=== PATIENT | male | born 1970 | race Two or more races ===

== ENCOUNTER 2018-10-01 13:30 | Inpatient (IN) | payer OTHER, MEDICARE ==
[2018-10-01 14:49] LABS: Mean Corpuscular HGB CONC 34.5 g/dL (32.0-36.0); Mean Corpuscular Hemoglobin 29.7 pg (27.0-31.0); Mean Platelet Volume 6.3 fL (7.4-10.4); Platelet Count 287 thou/uL (130-400); RBC Distribution Width 11.9 % (11.5-14.5); Red Blood Cell (RBC) Count 5.06 mill/uL (4.70-6.10); White Blood Cell (WBC) Count 8.1 thou/uL (4.8-10.8)
[2018-10-01 15:09] LABS: Anion Gap 15 mmol/L (10-20); BUN (Urea Nitrogen) 16 mg/dL (8.9-20.6); Calc. Creatinine Clearance 0 mL/min (70-130); Carbon Dioxide 22 mmol/L (22-29); Chloride 101 mmol/L (98-107); Estimated GFR-MDRD 84; Glucose 230 mg/dL (70-105); Potassium 3.9 mmol/L (3.5-5.1); Sodium 134 mmol/L (136-145)
[2018-10-02] MEDS ORDERED: Nitroglycerin 50 MG/250 ML BOT 250 ML ONE (06:21)
[2018-10-02] MEDS ORDERED: Fentanyl 250 MCG/5 ML VIAL ONE (06:22)
[2018-10-02] MEDS ORDERED: Norepinephrine 4 MG/4 ML VIAL ONE (06:22)
[2018-10-02] MEDS ORDERED: Midazolam HCl 2 mg/2 ml Vial ONE (06:23)
[2018-10-02] MEDS ORDERED: Albumin 5% 500 ML ONE (06:30)
[2018-10-02] MEDS ORDERED: Heparin 10,000 UNITS/1 ML VIAL 30,000 UNITS in Sodium Chloride 0.9% 1,000 ML FS SCH (06:45)
[2018-10-02] MEDS ORDERED: ceFAZolin Sodium (SDC) 2 GM/100 ML BAG ONE (06:54)
[2018-10-02] MEDS ORDERED: Midazolam HCl 5 mg/5 ml Vial ONE (07:24)
[2018-10-02] MEDS ORDERED: HYDROmorphone 2 MG/ML VIAL ONE (08:24)
[2018-10-02] MEDS ORDERED: Insulin Regular 300 UNITS/3 ML VIAL ONE (09:22)
[2018-10-02] MEDS ORDERED: Rocuronium Bromide 10 MG/ML (10ML VIAL) ONE (11:10)
[2018-10-02] MEDS ORDERED: Sodium Bicarb 50 MEQ/50 ML VIAL ONE (11:10)
[2018-10-02] MEDS ORDERED: Magnesium 5 GM/10 ML VIAL ONE (11:10)
[2018-10-02] MEDS ORDERED: Calcium Chloride 1 GM/10 ML Abboject SYRINGE ONE (11:10)
[2018-10-02] MEDS ORDERED: Heparin 30,000 units/30 ml VIAL ONE (11:10)
[2018-10-02] MEDS ORDERED: Aminocaproic Acid 5 GM/20 ML VIAL ONE (11:10)
[2018-10-02] MEDS ORDERED: Vecuronium 10 MG VIAL ONE ×2 (11:10→11:26)
[2018-10-02] MEDS ORDERED: Mannitol 12.5 GM/50 ML ONE (11:10)
[2018-10-02] MEDS ORDERED: Potassium Chloride 60 MEQ/30 ML VIAL ONE (11:10)
[2018-10-02] MEDS ORDERED: Cardioplegic Soln 1,000 ML BAG ONE (11:10)
[2018-10-02] MEDS ORDERED: Heparin 5,000 UNITS/ML VIAL ONE (11:10)
[2018-10-02] MEDS ORDERED: PROPOFOL 200 MG/20 ML VIAL ONE (11:10)
[2018-10-02] MEDS ORDERED: Ondansetron PF 4 MG/2 ML Vial ONE (11:10)
[2018-10-02] MEDS ORDERED: Protamine Sulfate 250 MG/25 ML VIAL ONE (11:10)
[2018-10-02] MEDS ORDERED: Lidocaine 2% PF 100 mg/5 ml Syringe ONE (11:10)
[2018-10-02] MEDS ORDERED: Papaverine 60 MG/2 ML VIAL ONE (11:10)
[2018-10-02] MEDS ORDERED: Succinylcholine Chloride 20 MG/ML 10 ml SYRINGE FS ONE (11:10)
[2018-10-02] MEDS ORDERED: Thrombin 5000 UNITS/5 ML VIAL ONE (11:10)
[2018-10-02] MEDS ORDERED: PROPOFOL 20 ML ONE (11:26)
[2018-10-02] MEDS ORDERED: niCARdipine 25 MG in Sodium Chloride 0.9% 250 ML 250 ML IVPB PRN (11:39)
[2018-10-02] MEDS ORDERED: Promethazine HCl 25 MG/ML VIAL IM PRN (11:39)
[2018-10-02] MEDS ORDERED: Nitroglycerin 50 MG/250 ML BOT 250 ML IVPB PRN (11:39)
[2018-10-02] MEDS ORDERED: Bisacodyl 10 MG SUPP PR PRN (11:39)
[2018-10-02] MEDS ORDERED: Bisacodyl 5 MG TAB PO PRN (11:39)
[2018-10-02] MEDS ORDERED: Norepinephrine 8 MG/0.9% NS 250 ML IVPB PRN (11:39)
[2018-10-02] MEDS ORDERED: Post-Op Insulin Drip Protocol IVPB ONE (11:39)
[2018-10-02] MEDS ORDERED: Hetastarch 6% 500 ML 500 ML IVPB PRN (11:39)
[2018-10-02] MEDS ORDERED: DOPamine 400 MG/D5W 250 ML 250 ML IVPB PRN (11:39)
[2018-10-02] MEDS ORDERED: hydrALAZINE 20 MG/ML VIAL SLOW IVP PRN (11:39)
[2018-10-02] MEDS ORDERED: Mag-Al 1200 mg/1200 mg/30 ML UDCUP PO PRN (11:39)
[2018-10-02] MEDS ORDERED: HYDROcodone/Acetaminophen 5/325 mg Tablet PO PRN (11:39)
[2018-10-02] MEDS ORDERED: Guaifenesin DM 100-10/5 ML UDCUP PO PRN (11:39)
[2018-10-02] MEDS ORDERED: CEFAZOLIN 2 GM in Premix Bag 1 BAG IVPB SCH (11:45)
[2018-10-02] MEDS: Lactated Ringer's 1,000 ML IV SCH ×2 (12:05→19:44)
[2018-10-02 12:18] LABS: Actual Bicarbonate (HCO3a) 23.5 mEq/L (22-28); Base Excess (BEa) -2.3 mEq/L (-2.0 to +3.0); Carboxyhemoglobin (COHb) 0.7 gm% (0.0-3.0); Hemoglobin (Hb) 12.9 g/dL (14.0-18.0); Potassium - ABG Lab 3.66 mmol/L (3.70-5.30); Puncture Site A-LINE; pH, Arterial 7.35 (7.35-7.45)
[2018-10-02 12:24] LABS: #Basophils 0.1 thou/uL (0.0-0.2); #Eosinphils 0.2 thou/uL (0.0-0.7); #Lymphocytes 1.7 thou/uL (1.20-3.40); #Monocytes 1.1 thou/uL (0.11-0.59); #Neutrophils 12.7 thou/uL (1.40-6.50); %Basophils 0.3 % (0.0-1.0); %Eosinophils 1.4 % (0.0-10.0); %Lymphocytes 10.6 % (21.0-51.0); %Monocytes 6.9 % (0.0-10.0); %Neutrophils 80.7 % (42.0-75.0); Hemoglobin 12.6 g/dL (14.0-18.0); Mean Corpuscular HGB CONC 35.5 g/dL (32.0-36.0); Mean Corpuscular Hemoglobin 30.5 pg (27.0-31.0); Mean Corpuscular Volume 85.8 fL (78.0-98.0); Mean Platelet Volume 6.3 fL (7.4-10.4); Platelet Count 221 thou/uL (130-400); RBC Distribution Width 11.9 % (11.5-14.5); Red Blood Cell (RBC) Count 4.14 mill/uL (4.70-6.10); White Blood Cell (WBC) Count 15.7 thou/uL (4.8-10.8)
[2018-10-02 12:28] LABS: INR-International Normal Ratio 1.2; PTT 29.5 SEC (22.9-36.1); Prothrombin Time 15.2 SEC (12.0-14.7)
[2018-10-02] MEDS: Fentanyl 100 MCG/2 ML VIAL SLOW IVP PRN ×3 (12:30→21:06)
[2018-10-02] MEDS ORDERED: Dextrose 5% in Water 1,000 ML IV PRN (12:33)
[2018-10-02] MEDS ORDERED: HUMULIN R 100 UNITS in Sodium Chloride 0.9% 100 ML IVPB SCH (12:33)
[2018-10-02] MEDS ORDERED: Dextrose 50% Abboject 50 ML SYRINGE SLOW IVP PRN (12:33)
--- NOTE | 2018-10-02 12:36 | RAD ---
Portable frontal chest radiograph: 10/02/2018 COMPARISON: None HISTORY: Evaluate chest following open heart surgery FINDINGS: Endotracheal tube terminates at the level of the clavicular heads. Midline sternotomy wires are present. Right-sided vascular catheter present, distal tip overlying the region of the right atrium. Postsurgical drainage catheters overlie the mediastinum and the cardiac silhouette to the lef t of midline. No focal consolidation or alveolar edema. Mild hazy increased density in the medial left base suggesting volume loss IMPRESSION: Postoperative changes as detailed above.
[2018-10-02] MEDS: Ketorolac Tromethamine 30 MG/ML VIAL IVP SCH ×3 (12:38→23:05)
[2018-10-02] MEDS: Insulin Regular 300 UNITS/3 ML VIAL SC PRN (12:39)
[2018-10-02 12:40] LABS: Anion Gap 11 mmol/L (10-20); BUN (Urea Nitrogen) 14 mg/dL (8.9-20.6); Calc. Creatinine Clearance 168 mL/min (70-130); Calcium 9.2 mg/dL (7.8-10.44); Carbon Dioxide 24 mmol/L (22-29); Chloride 109 mmol/L (98-107); Estimated GFR-MDRD 85; Glucose 145 mg/dL (70-105); Potassium 3.8 mmol/L (3.5-5.1); Sodium 140 mmol/L (136-145)
--- NOTE | 2018-10-02 12:46 | OP ---
DATE OF PROCEDURE: 10/02/2018 PREOPERATIVE DIAGNOSIS: Coronary artery disease. PROCEDURES PERFORMED: Coronary artery bypass grafting x4, left internal mammary artery as a sequential graft to 1.5 mm diseased diagonal and a left anterior descending that did not admit a 1 mm probe distally, saphenous vein somewhat large to a 3 mm distal right coronary artery with plaque and a 1.5 mm posterolateral branch that was diffusely diseased. ANKLE PATCH MOLDER: Jonatan Fernandez MD TRANSFUSION: None. DESCRIPTION OF PROCEDURE: After adequate anesthesia had been obtained, the patient was prepped and draped. Dr. Fernandez did an endovascular vein harvest of the left greater saphenous vein converted to open to perform a median sternotomy. Left internal mammary artery was harvested. The patient then heparinized. The mammary divided distally and passed posterior to the thymus gland. Pericardium was opened. Traction sutures placed and the aorta and right atrium cannulated. Cardiopulmonary bypass was begun and vessels were inspected for grafting. The LAD was diffusely calcified at the apex and the patient did have a diagonal that could be done. The cross-clamp was applied after a liter of cold blood cardioplegia. The distal right coronary artery was opened and saphenous vein anastomosis completed. The PDA was examined; however, was diffusely calcified throughout its entire length. The posterolateral was opened and saphenous vein anastomosed here. Following this, the diagonal was opened and the mammary olrs-mr-glpn anastomosis completed. Finally , the LAD was opened admitting a 1 mm probe proximally. Distal anastomosis was then completed between the mammary and the LAD. Cross-clamp removed. Partial occluding clamp placed in the main right coronary artery. Vein graft was anastomosed to the aortic root and the PL graft vein graft was placed on the RCA veinabout 2 cm from the aorta. The patient was weaned from cardiopulmonary bypass. Cannula was removed. Protamine given systemically. Aortic cannulation site secured with probe. A mediastinal left pleural drain was placed, following which the sternum was reapproximated with combination of a zip ties and #7 wire. Vancomycin paste was used on the sternal edges, platelet rich blood and platelet poor plasma were placed. There was no grafted vessel that was felt to be suitable for reoperation. Job ID: [id number] [facility]
[2018-10-02] MEDS: CEFAZOLIN 2 GM, IV Admixture Fee-Chemo 1 UNITS in Sodium Chloride 0.9% 100 ML IVPB SCH ×2 (13:01→21:11)
[2018-10-02] MEDS: Potassium Chloride 20 MEQ/100 ML PREMIX BAG IVPB PRN ×2 (13:02→23:13)
[2018-10-02] MEDS: Morphine 2 MG/ML SYRINGE SLOW IVP PRN ×2 (13:30→13:50)
[2018-10-02 16:25] LABS: ALV-art Gradient 135.925 (0-20); Actual Bicarbonate (HCO3a) 21.2 mEq/L (22-28); Base Excess (BEa) -4.1 mEq/L (-2.0 to +3.0); CO2 Tension 39.5 mmHg (35.0-45.0); Calcium, Ionized 1.12 mmol/L (1.12-1.30); Hemoglobin (Hb) 13.1 g/dL (14.0-18.0); O2 Tension (PaO2) 99.9 mmHg (80.0-100.0); Potassium - ABG Lab 4.01 mmol/L (3.70-5.30); Puncture Site A-LINE; pH, Arterial 7.35 (7.35-7.45)
[2018-10-02] MEDS: Ondansetron PF 4 MG/2 ML Vial IVP PRN (17:04)
--- NOTE | 2018-10-02 17:11 | CON ---
DATE OF CONSULTATION: 10/02/2018 REASON FOR CONSULTATION: Post CABG. PRIMARY MANAGER STEEL: Emmanuel Yost MD HISTORY OF PRESENT ILLNESS: Mr. Calderon is a pleasant 48-year-old gentleman, who comes to the hospital for a planned CABG. He was seen in the office back in July for establishment of care. He was feeling poorly fatigued all the time. We did an echocardiogram and a stress test and it showed that his EF was reduced at 40% to 45% with an anterior scar. He has a history of a heart attack. Several years ago, he had a stent placed. He does not know which vessel and he had some residual disease, but they told him that he could not get intervened because of the area where the blockage was. He underwent heart catheterization earlier this month and was found to have severe multivessel disease, so Dr. Bell evaluated him as an outpatient and did a CABG earlier today. On my evaluation, he is extubated now. He is still trying to get weaned off pressors, but his only complaint is chest wall soreness from the surgery. PAST MEDICAL HISTORY: 1. Coronary artery disease. 2. History of [place] in May of 2016. 3. Osteoarthritis. 4. Sleep apnea, not using his CPAP. 5. Type 2 diabetes. 6. Depression. 7. Anxiety. PAST SURGICAL HISTORY: 1. Shoulder surgery in 2013. 2. Carpal tunnel surgery. 3. Bone spurs in spine. 4. Coronary artery bypass grafting x4 with SANDHU to the LAD and sequential to diagonal. Saphenous vein to a large distal right and saphenous vein to posterolateral branch. FAMILY HISTORY: Mother with dementia and lung cancer. SOCIAL HISTORY: Continues to smoke every day about a pack a day. One or two cups of coffee a day. No alcohol. No drugs. ALLERGIES: SEROQUEL. OUTPATIENT MEDICATIONS: 1. Metoprolol. 2. Aspirin 81 a day. 3. Metformin. 4. Humalog. 5. Atorvastatin. 6. Lisinopril. 7. Imdur. REVIEW OF SYSTEMS: A 12-point review of systems was done and was all negative unless stated in the history of present illness. PHYSICAL EXAMINATION: VITAL SIGNS: Temperature 98.1, pulse 105, respiratory rate 21, saturating 97% on 2 L nasal cannula, and blood pressure 131/65. GENERAL: Awake, alert, and oriented x3, in moderate pain. HEENT: Normocephalic and atraumatic. NECK: Supple. LUNGS: Clear. CARDIOVASCULAR: S1 and S2. There is a three-component rub consistent with his recent heart procedure and line still in place. ABDOMEN: Soft. EXTREMITIES: 1+ edema in the left leg where his venous harvesting was. SKIN: Warm and dry. LABORATORY DATA: Laboratory work was reviewed. CBC was reviewed. Coags, ABG, and chemistries were all reviewed. BUN and creatinine are normal with GFR of 85. Calcium 9.2. Sugars in the 120s to 130s. IMAGING STUDIES: Chest x-ray was reviewed. ASSESSMENT: 1. Coronary artery disease. 2. Status post coronary artery bypass grafting x4 with left internal mammary artery sequential to the diagonal and left anterior descending artery. Vein graft to right coronary artery and a vein graft to a distal posterior descending branch. 3. Hypertension. 4. Hyperlipidemia. 5. Type 2 diabetes. PLAN: 1. Continue postoperative care. 2. Aspirin and statin for life. 3. Beta dg and ANABELLA inhibitor once blood pressure allows. 4. We will restart home diabetic medications in the next few days once further out of the surgery. Thank you for letting me to participate in the care of your patient. We will follow. Job ID: [id number]
[2018-10-02] MEDS: Atorvastatin Calcium 40 MG TAB PO SCH (20:59)
[2018-10-02] MEDS: Famotidine/PF 20 mg/2ml Vial SLOW IVP SCH (20:59)
[2018-10-02] MEDS: HYDROcodone/Acetaminophen 5/325 mg Tablet PO PRN (23:22)
[2018-10-03] MEDS: Fentanyl 100 MCG/2 ML VIAL SLOW IVP PRN ×4 (01:30→20:39)
[2018-10-03] MEDS: HYDROcodone/Acetaminophen 5/325 mg Tablet PO PRN ×4 (03:22→15:07)
[2018-10-03 05:11] LABS: #Eosinphils 0.1 thou/uL (0.0-0.7); #Lymphocytes 2.2 thou/uL (1.20-3.40); #Monocytes 0.9 thou/uL (0.11-0.59); #Neutrophils 6.4 thou/uL (1.40-6.50); %Basophils 0.3 % (0.0-1.0); %Eosinophils 0.6 % (0.0-10.0); %Lymphocytes 23.3 % (21.0-51.0); %Monocytes 9.7 % (0.0-10.0); %Neutrophils 66.1 % (42.0-75.0); Hemoglobin 10.3 g/dL (14.0-18.0); Mean Corpuscular HGB CONC 35.1 g/dL (32.0-36.0); Mean Corpuscular Hemoglobin 30.4 pg (27.0-31.0); Mean Corpuscular Volume 86.6 fL (78.0-98.0); Platelet Count 187 thou/uL (130-400); White Blood Cell (WBC) Count 9.6 thou/uL (4.8-10.8)
[2018-10-03 05:36] LABS: Anion Gap 11 mmol/L (10-20); BUN (Urea Nitrogen) 13 mg/dL (8.9-20.6); Calc. Creatinine Clearance 163 mL/min (70-130); Calcium 8.1 mg/dL (7.8-10.44); Carbon Dioxide 24 mmol/L (22-29); Chloride 106 mmol/L (98-107); Estimated GFR-MDRD 82; Glucose 129 mg/dL (70-105); Potassium 3.6 mmol/L (3.5-5.1); Sodium 137 mmol/L (136-145)
[2018-10-03] MEDS: Ketorolac Tromethamine 30 MG/ML VIAL IVP SCH ×4 (06:36→23:55)
[2018-10-03] MEDS: Lactated Ringer's 1,000 ML IV SCH (06:37)
[2018-10-03] MEDS: Famotidine/PF 20 mg/2ml Vial SLOW IVP SCH ×2 (07:25→20:38)
[2018-10-03] MEDS: Potassium Chloride 20 MEQ/100 ML PREMIX BAG IVPB PRN (07:25)
--- NOTE | 2018-10-03 07:49 | RAD ---
EXAM: Single view of the chest HISTORY: Status post open heart surgery COMPARISON: 10/02/2018 FINDINGS: Single view of the chest shows an enlarged but stable cardiomediastinal silhouette. The pa tient is status post sternotomy. Endotracheal tube has been removed. The other lines and tubes are unchanged in position. There is no evidence of consolidation, mass, or pleural effusion. The bones a re unremarkable. IMPRESSION: Stable exam status post extubation.
[2018-10-03] MEDS ORDERED: Aspirin 325 MG TAB PO SCH (09:00)
[2018-10-03] MEDS ORDERED: Insulin Glargine 25 UNITS in Pre-Filled Syringe 1 EACH SC SCH (09:00)
[2018-10-03] MEDS: Cepastat Lozenges 1 LOZ PO PRN ×3 (11:22→22:06)
[2018-10-03] MEDS: Ondansetron PF 4 MG/2 ML Vial IVP PRN (17:37)
--- NOTE | 2018-10-03 19:23 | PDOC.CTH ---
Cardiology Progress Note - Subjective Doing well. Having a hard time with pain control. - Objective Vital Signs Temp Pulse Resp Pulse Ox 10/03/18 19:12 104 H 16 98 10/03/18 17:43 98.9 F 10/03/18 15:51 99.4 F 10/03/18 13:06 100 14 10/03/18 11:00 98.6 F Weight 277 lb 8.992 oz 10/02/18 10/03/18 10/04/18 06:59 06:59 06:59 Intake Total 4900.4 879.1 Output Total 1790 400 Balance 3110.4 479.1 - Physical Examination General/Neuro: alert & oriented x3, NAD Neck: no JVD present Lungs: CTA, unlabored respirations Heart: RRR Abdomen: NT/ND Extremities: + edema B (1+) - Telemetry Telemetry Rhythm: NSR - Labs Result Diagrams: 10/03/18 05:00 10/03/18 05:00 - Assessment/Plan 1. Multivessel CAD. 2. S/P CABG x 4, SANDHU to LAD/diag, SVG to RCA, SVG to PL 3. Ischemic CM EF at 40-45% 4. HTN 5. DIabetes 6. Hx of [place] PLAN: - Pain control - ASA/statin for life. - Will start very low dose BB tomorrow. - ACEI once BP allows.
[2018-10-03] MEDS: Acetaminophen 325 MG TAB PO PRN (20:17)
[2018-10-03] MEDS: Atorvastatin Calcium 40 MG TAB PO SCH (20:37)
[2018-10-03] MEDS ORDERED: Metoprolol Tartrate 25 MG TAB PO SCH (21:00)
[2018-10-03] MEDS ORDERED: Insulin Glargine 20 UNITS in Pre-Filled Syringe 1 EACH SC SCH (21:00)
[2018-10-03] MEDS: Insulin Regular 300 UNITS/3 ML VIAL SC PRN ×2 (21:13→21:15)
[2018-10-04] MEDS: Fentanyl 100 MCG/2 ML VIAL SLOW IVP PRN ×4 (03:10→21:32)
[2018-10-04] MEDS: Acetaminophen 325 MG TAB PO PRN ×3 (04:09→19:10)
[2018-10-04 04:51] LABS: #Eosinphils 0.2 thou/uL (0.0-0.7); #Lymphocytes 1.4 thou/uL (1.20-3.40); #Monocytes 0.7 thou/uL (0.11-0.59); #Neutrophils 6.2 thou/uL (1.40-6.50); %Basophils 0.4 % (0.0-1.0); %Eosinophils 2.8 % (0.0-10.0); %Lymphocytes 16.5 % (21.0-51.0); %Monocytes 8.6 % (0.0-10.0); %Neutrophils 71.7 % (42.0-75.0); Hemoglobin 10.5 g/dL (14.0-18.0); Mean Corpuscular HGB CONC 36.1 g/dL (32.0-36.0); Mean Corpuscular Hemoglobin 31.6 pg (27.0-31.0); Mean Corpuscular Volume 87.5 fL (78.0-98.0); Mean Platelet Volume 6.3 fL (7.4-10.4); Platelet Count 170 thou/uL (130-400); RBC Distribution Width 11.9 % (11.5-14.5); Red Blood Cell (RBC) Count 3.33 mill/uL (4.70-6.10); White Blood Cell (WBC) Count 8.7 thou/uL (4.8-10.8)
[2018-10-04 05:08] LABS: Anion Gap 11 mmol/L (10-20); BUN (Urea Nitrogen) 15 mg/dL (8.9-20.6); Calc. Creatinine Clearance 163 mL/min (70-130); Calcium 8.3 mg/dL (7.8-10.44); Carbon Dioxide 24 mmol/L (22-29); Chloride 102 mmol/L (98-107); Estimated GFR-MDRD 80; Glucose 184 mg/dL (70-105); Potassium 4.1 mmol/L (3.5-5.1); Sodium 133 mmol/L (136-145)
[2018-10-04 05:10] VITALS: BMI 42.1
[2018-10-04] MEDS: Cepastat Lozenges 1 LOZ PO PRN ×3 (05:52→21:20)
[2018-10-04] MEDS: Insulin Regular 300 UNITS/3 ML VIAL SC PRN ×3 (05:55→17:30)
[2018-10-04] MEDS: Ketorolac Tromethamine 30 MG/ML VIAL IVP SCH (05:58)
--- NOTE | 2018-10-04 08:10 | RAD ---
PORTABLE CHEST: HISTORY: Postop open heart surgery. COMPARISON: Prior day's exam. FINDINGS: Heart size is enlarged. Right subclavian line shows tubes remain unchanged in position. Some parenc hymal lung changes in the left base are stable. IMPRESSION: Stable exam. POS: [facility]
[2018-10-04] MEDS ORDERED: Nitroglycerin 0.4 MG TAB (25 Tab Bottle) SL PRN (08:30)
[2018-10-04] MEDS ORDERED: Guaifenesin DM 100-10/5 ML UDCUP PO PRN (08:30)
[2018-10-04] MEDS ORDERED: Bisacodyl 10 MG SUPP PR PRN (08:30)
[2018-10-04] MEDS ORDERED: HYDROcodone/Acetaminophen 5/325 mg Tablet PO PRN (08:30)
[2018-10-04] MEDS ORDERED: Bisacodyl 5 MG TAB PO PRN (08:30)
[2018-10-04] MEDS ORDERED: Mineral Oil ENEMA PR PRN (08:30)
[2018-10-04] MEDS ORDERED: Potassium Chloride 10 MEQ TAB PO SCH (09:15)
[2018-10-04] MEDS ORDERED: Dextrose 5% in Water 1,000 ML IV PRN (09:22)
[2018-10-04] MEDS ORDERED: Dextrose 50% Abboject 50 ML SYRINGE SLOW IVP PRN (09:22)
[2018-10-04] MEDS: Aspirin 325 mg Enteric Coated Tablet PO SCH (09:29)
[2018-10-04] MEDS: Furosemide 40 MG TAB PO SCH (09:30)
[2018-10-04] MEDS: Metoprolol Tartrate 25 MG TAB PO SCH ×2 (09:30→21:21)
[2018-10-04] MEDS: Famotidine 20 MG TAB PO SCH ×2 (09:30→21:23)
[2018-10-04] MEDS: Polyethylene Glycol 3350 17 GM Packet PO SCH (09:31)
[2018-10-04] MEDS: Insulin Glargine 30 UNITS in Pre-Filled Syringe 1 EACH SC SCH ×2 (11:22→21:19)
--- NOTE | 2018-10-04 13:56 | PDOC.CTH ---
Cardiology Progress Note - Subjective pt. seen and eval. by me. Feels better than yesterday. Up in chair.No cardiac complaints. - Objective Vital Signs Temp Pulse Pulse Pulse Resp BP BP 10/04/18 12:00 97.2 F L 110 H 18 10/04/18 08:48 94 100 133/82 123/69 10/04/18 07:31 10/04/18 07:00 98.8 F 10/04/18 06:00 99.7 F H 10/04/18 04:00 102.3 F H 10/04/18 03:00 99.4 F BP Pulse Ox Pulse Ox Pulse Ox 10/04/18 12:00 129/84 93 L 10/04/18 08:48 96 95 10/04/18 07:31 100 10/04/18 07:00 10/04/18 06:00 10/04/18 04:00 10/04/18 03:00 Weight 278 lb 3.574 oz 10/03/18 10/04/18 10/05/18 06:59 06:59 06:59 Intake Total 4900.4 1479.1 120 Output Total 1790 935 Balance 3110.4 544.1 120 - Physical Examination General/Neuro: alert & oriented x3 Neck: carotid US brisk, no JVD present Lungs: CTA Heart: RRR Abdomen: NT/ND, soft - Labs Result Diagrams: 10/04/18 04:15 10/04/18 04:15 - Assessment/Plan 1. Multivessel CAD. 2. S/P CABG x 4, SANDHU to LAD/diag, SVG to RCA, SVG to PL 3. Ischemic CM EF at 40-45% 4. HTN 5. DIabetes 6. Hx of [place] PLAN: - Pain control - ASA/statin for life. - Low dose BB started. - ACEI .
[2018-10-04] MEDS ORDERED: Atorvastatin Calcium 20 MG TAB PO SCH (21:00)
[2018-10-04] MEDS: HYDROcodone/Acetaminophen 5/325 mg Tablet PO PRN (23:50)
[2018-10-05] MEDS: Cepastat Lozenges 1 LOZ PO PRN ×3 (03:04→21:40)
[2018-10-05 04:56] LABS: #Eosinphils 0.3 thou/uL (0.0-0.7); #Lymphocytes 1.7 thou/uL (1.20-3.40); #Monocytes 0.8 thou/uL (0.11-0.59); #Neutrophils 6.1 thou/uL (1.40-6.50); %Basophils 0.3 % (0.0-1.0); %Eosinophils 3.7 % (0.0-10.0); %Lymphocytes 19.1 % (21.0-51.0); %Monocytes 8.7 % (0.0-10.0); %Neutrophils 68.1 % (42.0-75.0); Hemoglobin 10.7 g/dL (14.0-18.0); Mean Corpuscular HGB CONC 35.9 g/dL (32.0-36.0); Mean Corpuscular Hemoglobin 31.2 pg (27.0-31.0); Mean Platelet Volume 6.5 fL (7.4-10.4); Platelet Count 200 thou/uL (130-400); RBC Distribution Width 11.6 % (11.5-14.5); Red Blood Cell (RBC) Count 3.41 mill/uL (4.70-6.10)
[2018-10-05] MEDS: HYDROcodone/Acetaminophen 5/325 mg Tablet PO PRN ×3 (05:03→21:31)
[2018-10-05] MEDS ORDERED: Metolazone 5 MG TAB PO SCH (06:15)
[2018-10-05] MEDS: Aspirin 325 mg Enteric Coated Tablet PO SCH (08:35)
[2018-10-05] MEDS: Metoprolol Tartrate 25 MG TAB PO SCH ×2 (08:35→21:33)
[2018-10-05] MEDS: Furosemide 40 MG TAB PO SCH (08:35)
[2018-10-05] MEDS: Potassium Chloride 10 MEQ TAB PO SCH (08:35)
[2018-10-05] MEDS: Polyethylene Glycol 3350 17 GM Packet PO SCH (08:36)
[2018-10-05] MEDS: Famotidine 20 MG TAB PO SCH ×2 (08:36→21:31)
[2018-10-05] MEDS: Insulin Glargine 30 UNITS in Pre-Filled Syringe 1 EACH SC SCH ×2 (09:43→21:33)
[2018-10-05] MEDS: Insulin Regular 300 UNITS/3 ML VIAL SC PRN ×2 (12:46→17:44)
--- NOTE | 2018-10-05 14:54 | PDOC.CTH ---
Cardiology Progress Note - Subjective The pt seen and examined. No overnight events. No cardiac complaints. He walked with PT twice today without any difficulties. - Objective Vital Signs Temp Pulse Pulse Pulse Resp BP BP 10/05/18 11:53 95 102 H 136/79 177/95 H 10/05/18 11:24 98.5 F 98 16 10/05/18 10:06 100 108 H 150/88 H 163/87 H 10/05/18 08:32 106 H 18 10/05/18 08:24 98.2 F 103 H 16 10/05/18 05:46 10/05/18 04:00 99.2 F 103 H 18 BP BP Pulse Ox Pulse Ox Pulse Ox 10/05/18 11:53 94 L 96 10/05/18 11:24 138/87 95 10/05/18 10:06 95 94 L 10/05/18 08:32 94 L 10/05/18 08:24 121/78 92 L 10/05/18 05:46 92 L 10/05/18 04:00 134/78 92 L Weight 279 lb 10/04/18 10/05/18 10/06/18 06:59 06:59 06:59 Intake Total 1479.1 3480 Output Total 935 800 Balance 544.1 2680 - Physical Examination General/Neuro: alert & oriented x3 Neck: no JVD present Lungs: CTA (diminished at base) Heart: RRR Abdomen: soft Extremities: other: (No edema) - Telemetry Telemetry Rhythm: SR ST - Labs Result Diagrams: 10/05/18 04:31 10/04/18 04:15 - Assessment/Plan 1. CAD with S/P CABG x 4, SANDHU to LAD/diag, SVG to RCA, SVG to PL on 10/02/2018 and hx of stent placement in past - on Bblocker, ASA, Statin; 3. Ischemic CM EF at 40-45% - stable with RA; On BBlocker and Lasix; may resume ANABELLA with stable VS 4. HTN - stable 5. DM type 2 MAR reviewed Pt. seen and eval. by me. I agree with the A/P by the BUSINESS OPERATIONS DIRECTOR.gjm Review of Systems - Review of Systems Constitutional: reports: no symptoms reported EENTM: reports: no symptoms reported Respiratory: reports: no symptoms reported Cardiac (ROS): reports: no symptoms reported ABD/GI: reports: no symptoms reported : reports: no symptoms reported Musculoskeletal: reports: no symptoms reported
[2018-10-05] MEDS: Atorvastatin Calcium 40 MG TAB PO SCH (21:31)
[2018-10-06] MEDS: HYDROcodone/Acetaminophen 5/325 mg Tablet PO PRN ×3 (02:45→18:31)
[2018-10-06] MEDS: Cepastat Lozenges 1 LOZ PO PRN ×3 (02:49→21:40)
[2018-10-06] MEDS: Diltiazem HCl 125 MG, Admixture Fee 1 EACH in Sodium Chloride 0.9% 100 ML IVPB SCH (06:13)
[2018-10-06] MEDS: Furosemide 40 MG TAB PO SCH (08:31)
[2018-10-06] MEDS: Aspirin 325 mg Enteric Coated Tablet PO SCH (08:31)
[2018-10-06] MEDS: Metoprolol Tartrate 25 MG TAB PO SCH (08:31)
[2018-10-06] MEDS: Potassium Chloride 10 MEQ TAB PO SCH (08:31)
[2018-10-06] MEDS: Famotidine 20 MG TAB PO SCH ×2 (08:31→21:40)
[2018-10-06] MEDS: Polyethylene Glycol 3350 17 GM Packet PO SCH (08:33)
[2018-10-06] MEDS: Insulin Glargine 30 UNITS in Pre-Filled Syringe 1 EACH SC SCH (08:37)
[2018-10-06] MEDS: Insulin Regular 300 UNITS/3 ML VIAL SC PRN ×3 (08:40→18:27)
[2018-10-06] MEDS: Fentanyl 100 MCG/2 ML VIAL SLOW IVP PRN ×2 (08:51→20:52)
[2018-10-06] MEDS ORDERED: Insulin Glargine 10 UNITS in Pre-Filled Syringe 1 EACH SC SCH (09:15)
--- NOTE | 2018-10-06 13:32 | PDOC.CTH ---
Cardiology Progress Note - Subjective The pt seen and examined. No overnight events. No cardiac complaints. Plan to D/c central line due to fever. - Objective Vital Signs Temp Pulse Pulse Pulse Resp BP BP 10/06/18 10:35 99 101 H 137/79 130/82 10/06/18 09:22 101 H 20 10/06/18 05:30 140 H 18 10/06/18 04:35 98.9 F 145 H 18 BP BP Pulse Ox Pulse Ox Pulse Ox 10/06/18 10:35 96 95 10/06/18 09:22 97 10/06/18 05:30 136/84 98 10/06/18 04:35 120/82 93 L Weight 279 lb 10/05/18 10/06/18 10/07/18 06:59 06:59 06:59 Intake Total 3480 2400 Output Total 800 Balance 2680 2400 - Physical Examination General/Neuro: alert & oriented x3 Neck: no JVD present Lungs: CTA Heart: RRR Abdomen: soft Extremities: other: (No edema) - Telemetry Telemetry Rhythm: SR - Labs Result Diagrams: 10/05/18 04:31 10/04/18 04:15 - Assessment/Plan 1. CAD with S/P CABG x 4, SANDHU to LAD/diag, SVG to RCA, SVG to PL on 10/02/2018 and hx of stent placement in past - on Bblocker, ASA, Statin; 2. Post-op Afib with RVR - Afib for 3 hrs and converted back to SR on 729, ; On Diltiazem 5mg/h; On ASA 325mg qd; Will increase Metoprolol from 12.5mg to 25mg BID for Afib, tachycardia, and Ischemic CMY; 3. Ischemic CM EF at 40-45% - stable with RA; On BBlocker and Lasix; may resume ANABELLA with stable VS 4. HTN - stable 5. DM type 2 6. Fever - plan to d/c central line MAR reviewed Pt. seen and eval. by me. I agree with the A/P by the GRAIN SHIPPER. Chest clear. RRR at this time. He thinks he may have passed out earlier today with the atrial flutter. This was not documented.gjm Review of Systems - Review of Systems Constitutional: reports: no symptoms reported EENTM: reports: no symptoms reported Respiratory: reports: no symptoms reported Cardiac (ROS): reports: no symptoms reported ABD/GI: reports: no symptoms reported : reports: no symptoms reported
[2018-10-06 14:24] LABS: Bacteria/HPF None Seen HPF (None Seen); Bilirubin Negative (Negative); Blood, Urine Negative (Negative); Clarity Clear (Clear); Glucose, Urine (Dipstick) Normal (Negative); Leukocyte Negative Leu/uL (Negative); Nitrite Negative (Negative); Protein, Urine (Dipstick) Negative (Neg-Trace); Squamous Epithelial None Seen HPF (0-3); Urobilinogen Normal mg/dL (Less than 2); WBC/HPF 0-3 HPF (0-3)
[2018-10-06] MEDS ORDERED: Metoprolol Tartrate 25 MG TAB PO SCH ×2 (14:30→21:00)
[2018-10-06 14:38] LABS: Urine Culture Reflex No No
[2018-10-06] MEDS: Insulin Glargine 40 UNITS in Pre-Filled Syringe 1 EACH SC SCH (21:40)
[2018-10-06] MEDS: Atorvastatin Calcium 40 MG TAB PO SCH (21:40)
[2018-10-07] MEDS ORDERED: traMADol HCl 50 MG TAB PO PRN ×2 (00:53)
[2018-10-07] MEDS: Cepastat Lozenges 1 LOZ PO PRN ×2 (01:18→05:26)
[2018-10-07] MEDS ORDERED: HYDROcodone/Acetaminophen 5/325 mg Tablet PO PRN (03:32)
[2018-10-07] MEDS: Fentanyl 100 MCG/2 ML VIAL SLOW IVP PRN ×3 (03:43→20:52)
[2018-10-07] MEDS: Diltiazem HCl 125 MG, Admixture Fee 1 EACH in Sodium Chloride 0.9% 100 ML IVPB SCH (04:21)
[2018-10-07] MEDS: Insulin Regular 300 UNITS/3 ML VIAL SC PRN ×4 (05:32→20:43)
--- NOTE | 2018-10-07 08:36 | EKG ---
Test Reason : POST CABG Blood Pressure : / mmHG Vent. Rate : 088 BPM Atrial Rate : 088 BPM P-R Int : 164 ms QRS Dur : 086 ms QT Int : 394 ms P-R-T Axes : 047 -15 023 degrees QTc Int : 476 ms Normal sinus rhythm Inferior infarct (cited on or before 01-OCT-2018) Abnormal ECG When compared with ECG of 01-OCT-2018 14:31, (Unconfirmed) Minimal criteria for Anterior infarct are no longer Present Confirmed by DR. Kiana HARP ([id number]) on 10/07/2018 8:36:11 AM Referred By: JONNA Confirmed By:DR. Kiana HARP
[2018-10-07] MEDS: Potassium Chloride 10 MEQ TAB PO SCH (09:44)
[2018-10-07] MEDS: metFORMIN 500 MG TAB PO SCH ×2 (09:44→17:02)
[2018-10-07] MEDS: Famotidine 20 MG TAB PO SCH ×2 (09:44→20:42)
[2018-10-07] MEDS: Furosemide 40 MG TAB PO SCH (09:45)
[2018-10-07] MEDS: Aspirin 325 mg Enteric Coated Tablet PO SCH (09:45)
[2018-10-07] MEDS: Metoprolol Tartrate 50 MG TAB PO SCH ×2 (09:45→20:43)
[2018-10-07] MEDS: Polyethylene Glycol 3350 17 GM Packet PO SCH ×2 (09:45→17:01)
[2018-10-07] MEDS: Insulin Glargine 40 UNITS in Pre-Filled Syringe 1 EACH SC SCH ×2 (09:45→20:43)
[2018-10-07] MEDS: HYDROcodone/Acetaminophen 5/325 mg Tablet PO PRN ×2 (09:52→13:59)
--- NOTE | 2018-10-07 12:12 | PDOC.CTH ---
Cardiology Progress Note - Subjective No new issues. He has been walking around with PT doing better every day. - Objective Vital Signs Temp Pulse Resp BP BP Pulse Ox 10/07/18 08:00 96 10/07/18 07:48 98.7 F 92 18 113/73 96 10/07/18 03:55 98.5 F 90 16 122/77 96 Weight 267 lb 10/06/18 10/07/18 10/08/18 06:59 06:59 06:59 Intake Total 2400 1839.4 10 Output Total 2400 Balance 2400 -560.6 10 - Physical Examination General/Neuro: alert & oriented x3, NAD Neck: no JVD present Lungs: CTA, unlabored respirations Heart: RRR Abdomen: NT/ND Extremities: + edema B (trace) - Telemetry Telemetry Rhythm: NSR - Labs Result Diagrams: 10/05/18 04:31 10/04/18 04:15 - Assessment/Plan 1. Multivessel CAD. 2. S/P CABG x 4, SANDHU to LAD/diag, SVG to RCA, SVG to PL 3. Ischemic CM EF at 40-45% 4. HTN 5. DIabetes 6. Hx of [place] 7. Post op afib 8. Post op fever. PLAN: - ASA/statin for life. - Increase PT as tolerated. - Continue BB at curent dose. No ACEI until BP a little higher. - No obvious source of fever, no recurrence since yesterday. - Has remained in sinus since Sunday at 7 am.
[2018-10-07] MEDS: Mag-Al 1200 mg/1200 mg/30 ML UDCUP PO PRN ×2 (17:10→20:52)
[2018-10-07] MEDS: Atorvastatin Calcium 40 MG TAB PO SCH (20:42)
[2018-10-08] MEDS: Fentanyl 100 MCG/2 ML VIAL SLOW IVP PRN (05:44)
[2018-10-08] MEDS: HYDROcodone/Acetaminophen 5/325 mg Tablet PO PRN ×2 (05:49→13:36)
[2018-10-08] MEDS ORDERED: Sodium Chloride 0.9% 10 ML ONE (08:56)
[2018-10-08] MEDS: Famotidine 20 MG TAB PO SCH ×2 (10:12→21:01)
[2018-10-08] MEDS: Metoprolol Tartrate 50 MG TAB PO SCH ×2 (10:13→21:01)
[2018-10-08] MEDS: Furosemide 40 MG TAB PO SCH (10:13)
[2018-10-08] MEDS: Potassium Chloride 10 MEQ TAB PO SCH (10:13)
[2018-10-08] MEDS: metFORMIN 500 MG TAB PO SCH ×2 (10:13→17:24)
[2018-10-08] MEDS: Aspirin 325 mg Enteric Coated Tablet PO SCH (10:13)
[2018-10-08] MEDS: Insulin Regular 300 UNITS/3 ML VIAL SC PRN ×3 (10:14→21:02)
[2018-10-08] MEDS: Insulin Glargine 40 UNITS in Pre-Filled Syringe 1 EACH SC SCH ×2 (10:14→21:01)
[2018-10-08] MEDS: Polyethylene Glycol 3350 17 GM Packet PO SCH (10:16)
[2018-10-08 13:06] LABS: Actual Bicarbonate (HCO3a) 18.6 mEq/L (22-28); Analyzer IN Cardio OR; Base Excess (BEa) -5.7 mEq/L (-2.0 to +3.0); Calcium, Ionized 1.05 mmol/L (1.12-1.30); Carboxyhemoglobin (COHb) 0.2 gm% (0.0-3.0); Hemoglobin (Hb) 12.7 g/dL (14.0-18.0); O2 Tension (PaO2) 313.8 mmHg (80.0-100.0); Potassium - ABG Lab 3.76 mmol/L (3.70-5.30); pH, Arterial 7.37 (7.35-7.45)
[2018-10-08 13:07] LABS: Analyzer IN Cardio OR; Base Excess (BEa) -7.4 mEq/L (-2.0 to +3.0); CO2 Tension 36.4 mmHg (35.0-45.0); Calcium, Ionized 1.06 mmol/L (1.12-1.30); Carboxyhemoglobin (COHb) 0.2 gm% (0.0-3.0); Hemoglobin (Hb) 12.7 g/dL (14.0-18.0); O2 Tension (PaO2) 359.9 mmHg (80.0-100.0); Potassium - ABG Lab 4.37 mmol/L (3.70-5.30); pH, Arterial 7.31 (7.35-7.45)
[2018-10-08 13:07] LABS: Actual Bicarbonate (HCO3a) 25.8 mEq/L (22-28); Analyzer IN Cardio OR; Base Excess (BEa) -1.4 mEq/L (-2.0 to +3.0); CO2 Tension 55.1 mmHg (35.0-45.0); Calcium, Ionized 1.02 mmol/L (1.12-1.30); Carboxyhemoglobin (COHb) 0.3 gm% (0.0-3.0); Hemoglobin (Hb) 11.3 g/dL (14.0-18.0); O2 Tension (PaO2) 392.8 mmHg (80.0-100.0); Potassium - ABG Lab 4.79 mmol/L (3.70-5.30); pH, Arterial 7.29 (7.35-7.45)
[2018-10-08 13:08] LABS: Actual Bicarbonate (HCO3v) 27 mEq/L (22-28); Analyzer IN Cardio OR; Base Excess -0.4 mEq/L (-2.0 to +3.0); Chloride (ABG LAB) 102 mmol/L (98-106); Hemoglobin (Hb) 11.3 g/dL (13.1-17.2); Potassium - ABG Lab 4.52 mmol/L (3.70-5.30); Sodium 137.9 mmol/L (133-146); pH (venous) 7.29 (7.32-7.43)
[2018-10-08 13:08] LABS: Actual Bicarbonate (HCO3a) 24.9 mEq/L (22-28); Analyzer IN Cardio OR; Base Excess (BEa) -1.4 mEq/L (-2.0 to +3.0); CO2 Tension 49.1 mmHg (35.0-45.0); Calcium, Ionized 0.99 mmol/L (1.12-1.30); Carboxyhemoglobin (COHb) 0.3 gm% (0.0-3.0); Hemoglobin (Hb) 10.5 g/dL (14.0-18.0); O2 Tension (PaO2) 343.8 mmHg (80.0-100.0); Potassium - ABG Lab 4.49 mmol/L (3.70-5.30); pH, Arterial 7.32 (7.35-7.45)
[2018-10-08 13:09] LABS: Actual Bicarbonate (HCO3a) 23.4 mEq/L (22-28); Analyzer IN Cardio OR; Base Excess (BEa) -2.4 mEq/L (-2.0 to +3.0); CO2 Tension 44.8 mmHg (35.0-45.0); Calcium, Ionized 1.21 mmol/L (1.12-1.30); Hemoglobin (Hb) 11.1 g/dL (14.0-18.0); O2 Tension (PaO2) 108.8 mmHg (80.0-100.0); Potassium - ABG Lab 3.86 mmol/L (3.70-5.30); pH, Arterial 7.34 (7.35-7.45)
[2018-10-08 13:09] LABS: Actual Bicarbonate (HCO3a) 24.2 mEq/L (22-28); Analyzer IN Cardio OR; Base Excess (BEa) -2.6 mEq/L (-2.0 to +3.0); CO2 Tension 51.1 mmHg (35.0-45.0); Calcium, Ionized 1.28 mmol/L (1.12-1.30); Carboxyhemoglobin (COHb) 0.3 gm% (0.0-3.0); Hemoglobin (Hb) 10.7 g/dL (14.0-18.0); O2 Tension (PaO2) 216.3 mmHg (80.0-100.0); Potassium - ABG Lab 3.54 mmol/L (3.70-5.30); pH, Arterial 7.29 (7.35-7.45)
[2018-10-08 13:10] LABS: Puncture Site ALINE
[2018-10-08 13:11] LABS: Puncture Site ALINE
[2018-10-08 13:11] LABS: Puncture Site ALINE
[2018-10-08 13:12] LABS: Puncture Site ALINE
[2018-10-08 13:13] LABS: Puncture Site ALINE
[2018-10-08 13:13] LABS: Puncture Site ALINE
[2018-10-08] MEDS ORDERED: Milk Of Magnesia 30 ML UDCUP PO PRN (14:07)
[2018-10-08] MEDS ORDERED: Magnesium Citrate 300 ML BOT PO PRN (14:08)
[2018-10-08] MEDS ORDERED: Milk Of Magnesia 30 ML UDCUP PO SCH (14:15)
--- NOTE | 2018-10-08 15:16 | PDOC.CTH ---
Cardiology Progress Note - Subjective Doing better today. Working with PT. He has been having BM's but feels constipated now. Still passing gas. - Objective Vital Signs Temp Pulse Resp BP BP Pulse Ox 10/08/18 12:00 98.7 F 85 16 113/71 97 10/08/18 07:55 97.4 F L 90 18 105/64 97 10/08/18 04:00 98.5 F 83 18 117/70 96 Weight 264 lb 3.2 oz 10/07/18 10/08/18 10/09/18 06:59 06:59 06:59 Intake Total 1839.4 1640 Output Total 2400 1600 Balance -560.6 40 - Physical Examination General/Neuro: alert & oriented x3, NAD Neck: no JVD present Lungs: CTA, unlabored respirations Heart: RRR Abdomen: NT/ND Extremities: + edema B (1+) - Telemetry Telemetry Rhythm: NSR - Labs Result Diagrams: 10/05/18 04:31 10/04/18 04:15 - Assessment/Plan 1. Multivessel CAD. 2. S/P CABG x 4, SANDHU to LAD/diag, SVG to RCA, SVG to PL 3. Ischemic CM EF at 40-45% 4. HTN 5. DIabetes 6. Hx of [place] 7. Post op afib 8. Post op fever, none for last 48 hrs. PLAN: - ASA/statin for life. - Increase PT as tolerated. - Continue BB at current dose. No ACEI until BP higher. - Continues to remain in sinus since Sunday at 7 am. - Stool softener.
[2018-10-08] MEDS: Mag-Al 1200 mg/1200 mg/30 ML UDCUP PO PRN (21:01)
[2018-10-08] MEDS: Atorvastatin Calcium 40 MG TAB PO SCH (21:01)
[2018-10-09] MEDS: HYDROcodone/Acetaminophen 5/325 mg Tablet PO PRN ×2 (02:45→12:50)
[2018-10-09] MEDS: Mag-Al 1200 mg/1200 mg/30 ML UDCUP PO PRN (02:48)
[2018-10-09] MEDS: Insulin Glargine 40 UNITS in Pre-Filled Syringe 1 EACH SC SCH (08:50)
[2018-10-09] MEDS: Metoprolol Tartrate 50 MG TAB PO SCH (08:50)
[2018-10-09] MEDS: Polyethylene Glycol 3350 17 GM Packet PO SCH (08:50)
[2018-10-09] MEDS: metFORMIN 500 MG TAB PO SCH (08:50)
[2018-10-09] MEDS: Aspirin 325 mg Enteric Coated Tablet PO SCH (08:51)
[2018-10-09] MEDS: Furosemide 40 MG TAB PO SCH (08:51)
[2018-10-09] MEDS: Famotidine 20 MG TAB PO SCH (08:51)
[2018-10-09] MEDS: Potassium Chloride 10 MEQ TAB PO SCH (08:51)
[2018-10-09] MEDS: Insulin Regular 300 UNITS/3 ML VIAL SC PRN ×2 (08:52→12:51)
--- NOTE | 2018-10-09 12:32 | DIS ---
DATE OF ADMISSION: 10/02/2018 DATE OF DISCHARGE: 10/09/2018 HOSPITAL COURSE: The patient was admitted for elective coronary artery bypass grafting, which was performed. The patient's surgery was on 10/02, and he underwent 4-vessel bypass grafting with SANDHU as a sequential graft to a 1.5 mm diagonal. The distal anastomosis was to an LAD that did not admit a 1 mm probe either proximally or distally. The saphenous vein was somewhat large with a 3 mm distal right coronary artery with plaque and a 1.5 mm posterolateral branch that was diffusely diseased. Postoperatively, he had some fever the day after surgery to 102 degrees that did not recur; however, he was placed on Levaquin. Urine was clear, and chest x-ray was unremarkable. His postop course otherwise was not particularly notable, and he will be discharged home today on metoprolol 50 b.i.d., Levaquin 750 a day for 5 days, polyethylene glycol daily, and [place] 5 #40 for pain. He is to resume his home medicines of aspirin, insulin, metformin, and atorvastatin. Discharge and followup instructions were given. Job ID: [id number]
--- NOTE | 2018-10-09 12:51 | PDOC.CTH ---
Cardiology Progress Note - Subjective He had 3 BM's yesterday evening and this morning. He is feeling very well. He is walking around the halls without issues. - Objective Vital Signs Temp Pulse Resp BP Pulse Ox 10/09/18 07:35 97.8 F 84 15 123/66 97 10/09/18 03:24 97.3 F L 94 21 H 116/74 93 L Weight 267 lb 10/08/18 10/09/18 10/10/18 06:59 06:59 06:59 Intake Total 1640 1610 Output Total 1600 575 Balance 40 1035 - Physical Examination General/Neuro: alert & oriented x3, NAD Neck: no JVD present Lungs: CTA, unlabored respirations Heart: RRR Abdomen: NT/ND Extremities: + edema B (Trace) - Telemetry Telemetry Rhythm: NSR - Labs Result Diagrams: 10/05/18 04:31 10/04/18 04:15 - Assessment/Plan 1. Multivessel CAD. 2. S/P CABG x 4, SANDHU to LAD/diag, SVG to RCA, SVG to PL 3. Ischemic CM EF at 40-45% 4. HTN 5. DIabetes 6. Hx of [place] 7. Post op afib 8. Post op fever, none for last 48 hrs. PLAN: - ASA/statin for life. - Increase PT as tolerated. - Continue BB at current dose. - Will add very low dose ACEI. - Continues to remain in sinus since Sunday at 7 am. - Stool softener.
[2018-10-09 12:56] VITALS: BP 118/70; TEMP 98.6
--- NOTE | 2018-10-09 13:13 | EKG ---
Test Reason : STAT Blood Pressure : / mmHG Vent. Rate : 152 BPM Atrial Rate : 156 BPM P-R Int : 000 ms QRS Dur : 088 ms QT Int : 290 ms P-R-T Axes : 000 -49 072 degrees QTc Int : 461 ms Sinus tachycardia with Premature atrial complexes Left axis deviation Inferior infarct (cited on or before 01-OCT-2018) Anterolateral infarct , age undetermined Abnormal ECG When compared with ECG of 02-OCT-2018 12:16, Significant changes have occurred Confirmed by EVANS BLUE ([id number]) on 10/09/2018 1:13:03 PM Referred By: JONNA Confirmed By:EVANS BLUE
[2018-10-10] MEDS ORDERED: Lisinopril 2.5 MG TAB PO SCH (09:00)
== END 2018-10-09 15:45 | disposition home or self-care (01) | DRG 236 ==
LOC: SURG A 10-02 05:59 → CCU 10-02 10:40 → EEVIPCON 10-02 13:30 → 2NO 10-04 08:03
PROVIDERS: ADMIT Thoracic Surgery (Cardiothoracic Vascular Surgery); ATTEND Thoracic Surgery (Cardiothoracic Vascular Surgery)
PROC: 02100Z9 Bypass Coronary Artery, One Artery from Left Internal Mammary, Open Approach (ICD-10-PCS; principal; 2018-10-02)
PROC: 021209W Bypass Coronary Artery, Three Arteries from Aorta with Autologous Venous Tissue, Open Approach (ICD-10-PCS; 2018-10-02)
PROC: 06BQ4ZZ Excision of Left Saphenous Vein, Percutaneous Endoscopic Approach (ICD-10-PCS; 2018-10-02)
PROC: 5A1221Z Performance of Cardiac Output, Continuous (ICD-10-PCS; 2018-10-02)
DX: I25.10 Atherosclerotic heart disease of native coronary artery without angina pectoris (principal); M19.90 Unspecified osteoarthritis, unspecified site; G47.30 Sleep apnea, unspecified; F32.9 Major depressive disorder, single episode, unspecified; F41.9 Anxiety disorder, unspecified; E78.5 Hyperlipidemia, unspecified; I25.5 Ischemic cardiomyopathy; I10 Essential (primary) hypertension; E11.9 Type 2 diabetes mellitus without complications; F17.210 Nicotine dependence, cigarettes, uncomplicated; I48.91 Unspecified atrial fibrillation; R50.82 Postprocedural fever; I25.2 Old myocardial infarction; Z98.890 Other specified postprocedural states; Z95.1 Presence of aortocoronary bypass graft; Z88.8 Allergy status to other drugs, medicaments and biological substances; Z79.01 Long term (current) use of anticoagulants
CPT/HCPCS: 36415; 36416; 36430; 71045; 80048; 81001; 82805; 82947; 85025; 85027; 85610; 85730; 86850; 86900; 86901; 87071; 93005; 93010; 93798; 94002; 94150; 94640; J0360; J0690; J1170; J1642; J1644; J1815; J1885; J2001; J2150; J2250; J2270; J2405; J2440; J2704; J2720; J3010; J3370; J3475; J3480; J3490; J7050; J7620; P9045; S0017; S0028

== ENCOUNTER 2018-10-01 13:41 | Outpatient (CLI) | payer OTHER ==
--- NOTE | 2018-10-04 08:02 | EKG ---
Test Reason : Blood Pressure : / mmHG Vent. Rate : 089 BPM Atrial Rate : 089 BPM P-R Int : 148 ms QRS Dur : 090 ms QT Int : 364 ms P-R-T Axes : 038 -31 058 degrees QTc Int : 442 ms Normal sinus rhythm Left axis deviation Low voltage QRS Inferior infarct , age undetermined Anterior infarct , age undetermined Abnormal ECG No previous ECGs available Confirmed by DR. Kiana HARP ([id number]) on 10/04/2018 8:01:32 AM Referred By: JONNA Confirmed By:DR. Kiana HARP
== END 2018-10-01 13:42 | disposition home or self-care (01) ==
LOC: LABBT 13:41
PROVIDERS: ATTEND Thoracic Surgery (Cardiothoracic Vascular Surgery)
DX: Z01.812 Encounter for preprocedural laboratory examination (principal); I25.10 Atherosclerotic heart disease of native coronary artery without angina pectoris
CPT/HCPCS: 93005; 93010

== ENCOUNTER 2018-10-16 09:45 | Observation (INO) | payer OTHER, MEDICARE ==
[2018-10-16 10:22] LABS: ALT (SGPT) 18 U/L (8-55); AST (SGOT) 21 U/L (5-34); Albumin 4.2 g/dL (3.5-5.0); Alkaline Phosphatase 78 U/L (40-150); Anion Gap 15 mmol/L (10-20); BUN (Urea Nitrogen) 20 mg/dL (8.9-20.6); Bilirubin, Total 0.7 mg/dL (0.2-1.2); CK (CPK) 53 U/L (30-200); Calc. Creatinine Clearance 0 mL/min (70-130); Calcium 9.9 mg/dL (7.8-10.44); Carbon Dioxide 24 mmol/L (22-29); Chloride 99 mmol/L (98-107); Estimated GFR-MDRD 67; Globulin 3.8 g/dL (2.4-3.5); Glucose 206 mg/dL (70-105); Potassium 4.1 mmol/L (3.5-5.1); Sodium 134 mmol/L (136-145)
[2018-10-16 10:26] LABS: #Basophils 0.1 thou/uL (0.0-0.2); #Eosinphils 0.3 thou/uL (0.0-0.7); #Lymphocytes 2.1 thou/uL (1.20-3.40); #Monocytes 0.6 thou/uL (0.11-0.59); %Basophils 0.7 % (0.0-1.0); %Eosinophils 3.8 % (0.0-10.0); %Lymphocytes 23.1 % (21.0-51.0); %Monocytes 6.8 % (0.0-10.0); %Neutrophils 65.6 % (42.0-75.0); Hemoglobin 14.1 g/dL (14.0-18.0); Mean Corpuscular HGB CONC 35.6 g/dL (32.0-36.0); Mean Corpuscular Hemoglobin 30.1 pg (27.0-31.0); Mean Corpuscular Volume 84.5 fL (78.0-98.0); PTT 29.6 SEC (22.9-36.1); Platelet Count 600 thou/uL (130-400); Red Blood Cell (RBC) Count 4.68 mill/uL (4.70-6.10); White Blood Cell (WBC) Count 9.1 thou/uL (4.8-10.8)
[2018-10-16 10:31] LABS: Prothrombin Time 13.2 SEC (12.0-14.7)
--- NOTE | 2018-10-16 10:51 | RAD ---
XR Chest 1 View Portable HISTORY: Dyspnea COMPARISON: 10/04/2018 FINDINGS: There are changes of median sternotomy. The heart size is borderline. No focal areas of con solidation, pneumothoraces, naheed pulmonary edema or large effusions are seen.
--- NOTE | 2018-10-16 10:56 | CT ---
CT PULMONARY ANGIOGRAM WITH IV CONTRAST AND 3D POSTPROCESSING: Date: 10/16/18 HISTORY: Shortness of breath, dizziness, and diaphoresis. FINDINGS: There is good contrast opacification in the pulmonary arterial vasculature without filling defects to suggest pulmonary embolism. The thoracic aorta is well opacified without aneurysm or dissection. No pericardial or right pleural effusions are seen. There is a small left pleural effusion with adjacent infiltrate/atelectatic change. There is atelectatic change at the right lung base. Degenerative gutierrez ges are seen in the spine. IMPRESSION: No CT evidence of pulmonary embolism. POS: [facility]
[2018-10-16] MEDS ORDERED: Aspirin Chewable 81 MG TAB ONE (11:42)
[2018-10-16 13:49] LABS: Troponin I Less than 0.010 ng/mL (< 0.028)
[2018-10-16] MEDS ORDERED: ISOVUE-370 76%-LOCM 1 ML ONE (15:06)
[2018-10-16] MEDS ORDERED: Ondansetron ODT 4 MG TAB SL PRN (16:13)
[2018-10-16] MEDS ORDERED: Acetaminophen 325 MG TAB PO PRN (16:13)
[2018-10-16] MEDS ORDERED: Ondansetron PF 4 MG/2 ML Vial IVP PRN ×2 (16:13→17:11)
[2018-10-16 17:04] LABS: Troponin I Less than 0.010 ng/mL (< 0.028)
[2018-10-16] MEDS ORDERED: Dextrose 50% Abboject 50 ML SYRINGE SLOW IVP PRN (17:11)
[2018-10-16] MEDS ORDERED: HumaLOG 300 UNITS/3 ML VIAL SC PRN ×2 (17:11)
[2018-10-16] MEDS ORDERED: Ondansetron ODT 4 MG TAB PO PRN (17:11)
[2018-10-16] MEDS ORDERED: Acetaminophen 500 MG TAB PO PRN (17:11)
[2018-10-16] MEDS ORDERED: Dextrose 5% in Water 1,000 ML IV PRN (17:11)
[2018-10-16] MEDS: HYDROcodone/Acetaminophen 5/325 mg Tablet PO PRN (18:19)
[2018-10-16] MEDS: Sodium Chloride 0.9% 1,000 ML IV SCH (18:24)
[2018-10-16] MEDS: metFORMIN 500 MG TAB PO SCH (21:16)
[2018-10-16] MEDS: Aspirin 81 mg Enteric Coated Tablet PO SCH (21:16)
[2018-10-16] MEDS: Famotidine 20 MG TAB PO SCH (21:16)
[2018-10-16] MEDS: Atorvastatin Calcium 40 MG TAB PO SCH (21:16)
[2018-10-16 21:47] VITALS: BMI 39.2
--- NOTE | 2018-10-17 01:24 | HP ---
PRIMARY CARE PROVIDER: Dr. Erick Vines. PRIMARY WINDER HAND: Emmanuel Yost MD CHIEF COMPLAINT: Chest pain and low blood pressure. HISTORY OF PRESENT ILLNESS: This is a 48-year-old male status post 4-vessel coronary artery bypass grafting 10/02/2018, recently admitted from 10/02 through 10/09/2018, status post coronary artery bypass grafting. The patient states he was hospitalized approximately 8 days, receiving a cardiac rehabilitation and medication adjustment prior to discharge. The patient states he felt weak with low blood pressure with systolics in the 70s and 80s. The patient called his physician, who told him to hold his metoprolol and continue lisinopril dosing. The patient denied any hematemesis or melena, but did state he had some chest tightness and difficulty catching his breath. The patient denied any increased lower extremity swelling or orthopnea. The patient denied any specific fever, but was prescribed Levaquin for approximately 5 days after discharge from the hospital, which he states he had completed. The patient states he had a low-grade fever prior to discharge from the hospital and was prescribed medication as a precaution. The patient denies any other noncompliance exposure history or travel. The patient admits to some diarrhea, which increased after receiving MiraLAX. In the emergency room, the patient underwent general evaluation including chest imaging showing no acute process. The patient received intravenous normal saline x500 mL and enteric-coated aspirin 324 mg. A 12-lead EKG showed changes consistent with prior infarct, but no acute changes. The patient was also noted with hypotension with systolics ranging between the mid 80s up to 145. The patient underwent CT angiogram of the chest showing no evidence for pulmonary embolus. The patient was transferred to the observation unit for further evaluation. PAST MEDICAL HISTORY: 1. Coronary artery disease, status post 4-vessel coronary artery bypass grafting 10/02/2018. 2. Hypertension. 3. Hyperlipidemia. 4. Diabetes mellitus type 2, insulin requiring. 5. History of myocardial infarction in 2013 and 2016. 6. Obesity. 7. Chronic back pain. 8. Peripheral neuropathy. PAST SURGICAL HISTORY: 1. Status post carpal tunnel release. 2. Status post tonsillectomy and adenoidectomy. 3. Status post right shoulder repair. 4. Status post cardiac stent placement x2. 5. Status post coronary artery bypass grafting x4 vessels. CURRENT MEDICATIONS: 1. Enteric-coated aspirin 81 mg p.o. daily. 2. Lipitor 40 mg p.o. at bedtime. 3. Fenofibrate 54 mg p.o. at bedtime. 4. NPH insulin 40 units subcutaneously b.i.d. on hold. 5. Metformin 1000 mg p.o. b.i.d. 6. [place] 5/325 mg 1 to 2 tablets p.o. q.6 hours p.r.n. pain. 7. Zestril 1.25 mg p.o. daily. 8. Metoprolol tartrate 50 mg p.o. b.i.d., held as of 10/11/2018. 9. MiraLAX 17 g p.o. daily. ALLERGIES: TO SEROQUEL. FAMILY HISTORY: Father alive and well at 70 years of age. Mother at 50 years of age. SOCIAL HISTORY: The patient resides in [place], [place]. Currently disabled. Prior tobacco use daily. No current alcohol or illicit drug use. . REVIEW OF SYSTEMS: CONSTITUTIONAL: Negative for weight loss or gain, ability to conduct usual activities. SKIN: Negative for rash, itching. EYES: Negative for double vision, pain. ENT/MOUTH: Negative for nose bleeding, neck stiffness, pain, tenderness. CARDIOVASCULAR: Negative for palpitations, dyspnea on exertion, orthopnea. RESPIRATORY: Negative for shortness of breath, wheezing, cough, hemoptysis, fever or night sweats. GASTROINTESTINAL: Negative for poor appetite, abdominal pain, heartburn, nausea, vomiting, constipation, or diarrhea. GENITOURINARY: Negative for urgency, frequency, dysuria, nocturia. MUSCULOSKELETAL: Negative for pain, swelling. NEUROLOGIC/PSYCHIATRIC: Negative for anxiety, depression. ALLERGY/IMMUNOLOGIC: Negative for skin rash, bleeding tendency. Otherwise negative except as stated per HPI. PHYSICAL EXAMINATION: VITAL SIGNS: On admission, blood pressure 109/74, pulse 86, respiratory rate 15, temperature 98.5 degrees Fahrenheit, O2 saturation 98% on room air. GENERAL APPEARANCE: This is a 48-year-old male, alert and oriented x3, pleasant, conversant, in no acute distress. HEENT: Pupils are equal, round, reactive to light and accommodation. Extraocular muscles are intact. No scleral icterus. No conjunctival injection. Nares patent. OP is clear. Teeth in fair repair. Oral mucosa dry. NECK: Supple. No cervical adenopathy. No thyromegaly. No carotid bruits. No JVD appreciated. Cervical spine with full active and passive range of motion. No meningeal signs noted. CHEST: Lungs are clear to auscultation bilaterally. CARDIOVASCULAR: S1 and S2 without noted murmur, rub, or gallop. Midline sternal incision noted consistent with prior coronary artery bypass grafting. ABDOMEN: Rounded, soft with mild tenderness to palpation in the mid epigastric region. No palpable mass. No rebound or guarding appreciated. EXTREMITIES: Warm and dry with fair turgor. No clubbing, cyanosis, or asymmetric edema appreciated. Pulses are palpable distally at the dorsalis pedis, posterior tibial, and popliteal arteries bilaterally. Capillary refill less than 2 seconds. NEUROLOGIC: Cranial nerves 2 through 12 are grossly intact. No focal or lateralizing signs appreciated. PERTINENT LAB AND X-RAY FINDINGS: Sodium 134, potassium 4.1, chloride 99, CO2 of 24, BUN 20, creatinine 1.17, estimated GFR of 67, calcium 9.9. LFTs within normal limits. Troponin I negative x3. BNP 112. CBC showed a white blood cell count of 9.1, hemoglobin 14.1, hematocrit 40, platelet count 600 with 66% neutrophils. PT 13.2, INR 1.0, PTT 29.6. Portable chest x-ray dated 10/16/2018, showed changes consistent with prior coronary artery bypass grafting. No focal consolidation or pulmonary edema. CT angiogram of the chest dated 10/16/2018, showed no evidence for pulmonary embolus. EKG dated 10/16/2018 by my interpretation shows sinus mechanism with heart rates in this 80s. Attenuated R-waves noted in the precordial leads. Left axis deviation noted. No acute ST-T wave changes appreciated. ASSESSMENT AND PLAN: 1. Hypotension. Suspect iatrogenic component. We will continue intravenous normal saline at 100 mL/h. Hold antihypertensive medications and monitor serial blood pressure trend. Check 2D transthoracic echocardiogram for ejection fraction and wall motion abnormality. 2. Acute kidney injury, mild, suspect secondary to volume depletion. Continue intravenous normal saline as outlined previously and avoid nephrotoxic agents and contrast media. Repeat creatinine in the a.m. 3. Coronary artery disease, status post coronary artery bypass grafting x4 vessels 10/02/2018. Continue aspirin 81 mg daily. Continue Lipitor 40 mg at bedtime. Consult Cardiothoracic Surgery Service for evaluation and opinion regarding presentation. 4. Diabetes mellitus type 2. Insulin sliding scale for reflexive coverage. Hold long-acting insulin currently. Continue the metformin 1000 mg b.i.d. Serial Accu-Cheks before meals and at bedtime. ADA diet. 5. Prophylaxis. SCDs while in bed. Pepcid 20 mg p.o. b.i.d. 6. Code status is full. Surrogate medical decision maker is the patient's spouse. Job ID: [id number]
[2018-10-17] MEDS: HYDROcodone/Acetaminophen 5/325 mg Tablet PO PRN ×3 (02:23→17:40)
[2018-10-17] MEDS: Sodium Chloride 0.9% 1,000 ML IV SCH (03:31)
[2018-10-17 05:33] LABS: Band 5 % (5-11); Eosinophils 3 % (0-10); Lymphocytes 19 % (21-51); MDiff Complete? YES; Mean Corpuscular Hemoglobin 30.9 pg (27.0-31.0); Mean Corpuscular Volume 85.7 fL (78.0-98.0); Mean Platelet Volume 6.2 fL (7.4-10.4); Monocytes 7 % (0-10); Neutrophil 66 % (42-75); Platelet Count 460 thou/uL (130-400); RBC Distribution Width 11.9 % (11.5-14.5); Red Blood Cell (RBC) Count 3.88 mill/uL (4.70-6.10); White Blood Cell (WBC) Count 8.8 thou/uL (4.8-10.8)
[2018-10-17 05:39] LABS: Anion Gap 12 mmol/L (10-20); BUN (Urea Nitrogen) 16 mg/dL (8.9-20.6); Calc. Creatinine Clearance 178 mL/min (70-130); Calcium 8.9 mg/dL (7.8-10.44); Carbon Dioxide 22 mmol/L (22-29); Chloride 104 mmol/L (98-107); Estimated GFR-MDRD Greater than 90; Glucose 143 mg/dL (70-105); Potassium 4.2 mmol/L (3.5-5.1); Sodium 134 mmol/L (136-145)
--- NOTE | 2018-10-17 07:38 | PRG ---
DATE OF SERVICE: 10/17/2018 This is a 48-year-old, recently discharged from the hospital following coronary artery bypass grafting. Hospital course was notable for fever of unknown origin. The patient was discharged home on low-dose beta dg and low-dose lisinopril. He reportedly had low blood pressure at home and was seen by a nurse practitioner and metoprolol was held and lisinopril was cut in half, although the dosage was only 2.5 mg daily. He presented to the hospital yesterday complaining of low blood pressure. Since admission, his blood pressure has been 100-120. Heart rate is recorded in the 80-85 range which is somewhat lower than discharge heart rate. Chest incision is healing nicely. Presumably, the patient can go home today, holding his beta dg and lisinopril. Job ID: [id number] MTDD
[2018-10-17] MEDS: Polyethylene Glycol 3350 17 GM Packet PO SCH (08:54)
[2018-10-17] MEDS: metFORMIN 500 MG TAB PO SCH ×2 (08:54→20:16)
[2018-10-17] MEDS: Famotidine 20 MG TAB PO SCH ×2 (08:54→20:15)
--- NOTE | 2018-10-17 10:38 | PDOC.HOSPP ---
- Subjective Encounter Date: 10/17/18 Encounter Time: 10:33 Subjective: Patient states he continues to feel lightheaded when sitting upright from lying position and when standing. He has been using his walker and takes a his time before he walks to the bathroom. No chest pain or sob. Still feels tired but significantly better than he did at home, BP was in 70/ 40s. BP much improved but still on fluids, 100cc/hr. Has noted increased cough, dry. Eating/drinking without difficulty. No n/v. No abdominal pain. Moving his bowels. No urinary symptoms. Remains afebrile. No lower leg edema/swelling. - Objective Vital Signs & Weight: Vital Signs (12 hours) Temp Pulse Resp BP BP Pulse Ox 10/17/18 07:34 98.3 F 98 24 H 109/64 97 10/17/18 03:40 98.4 F 85 16 109/64 98 10/16/18 23:26 98.5 F 82 12 107/67 98 Weight Weight 257 lb 14.4 oz I&O: 10/16/18 10/17/18 10/18/18 06:59 06:59 06:59 Intake Total 1040 Balance 1040 Result Diagrams: 10/17/18 04:38 10/17/18 04:38 Additional Labs: Accuchecks 10/17/18 10/16/18 05:34 17:08 POC Glucose 137 H 144 H ROS - Review of Systems Constitutional: reports: weakness. denies: fever, chills, sweats, malaise, other Eyes: denies: pain, vision change, conjunctivae inflammation, eyelid inflammation, redness, other ENT: denies: ear pain, ear discharge, nose pain, nose discharge, nose congestion , mouth pain, mouth swelling, throat pain, throat swelling, other Respiratory: reports: cough, dry. denies: shortness of breath, hemoptysis, SOB with excertion, pleuritic pain, sputum, wheezing, other Cardiovascular: reports: light headedness (with change in position, much improved compared to yesterday). denies: chest pain, palpitations, orthopnea, paroxysmal noc. dyspnea, edema, other Gastrointestinal: denies: nausea, vomitting, abdominal pain, diarrhea, constipation, melena, hematochezia, other Genitourinary: denies: dysuria, frequency, incontinence, hematuria, retention, other Musculoskeletal: denies: neck pain, shoulder pain, arm pain, back pain, hand pain, leg pain, foot pain, other Skin: denies: rash, lesions, erin, bruising, other Neurological: reports: weakness. denies: numbness, incoordination, change in speech, confusion, seizures, other - Medication Medications: Active Medications Generic Name Dose Route Start Last Admin Trade Name Freq PRN Reason Stop Dose Admin Hydrocodone Bitart/Acetaminophen 1 tab 10/16/18 17:11 10/17/18 08:59 [place] 5/325 PO 1 tab Q6H PRN Administration Moderate Pain (4-7) Aspirin 81 mg 10/16/18 21:00 10/16/18 21:16 Ecotrin PO 81 mg HS NAVA Administration Atorvastatin Calcium 40 mg 10/16/18 21:00 10/16/18 21:16 Lipitor PO 40 mg HS NAVA Administration Famotidine 20 mg 10/16/18 21:00 10/17/18 08:54 Pepcid PO 20 mg BID NAVA Administration Sodium Chloride 1,000 mls @ 100 mls/hr 10/16/18 17:15 10/17/18 03:31 Normal Saline 0.9% IV 1,000 mls .Q10H NAVA Administration Metformin HCl 1,000 mg 10/16/18 21:00 10/17/18 08:54 Glucophage PO 1,000 mg BID NAVA Administration Polyethylene Glycol 17 gm 10/17/18 09:00 10/17/18 08:54 Miralax PO 17 gm DAILY NAVA Administration - Exam NAD, awake alert Eye: PERRL, anicteric sclera ENT: normocephalic atraumatic, no oropharyngeal lesions, moist mucosa Neck: supple, symmetric, no lymphadenopathy Heart: RRR, normal peripheral pulses Heart - other findings: well healing midsternal incision Respiratory: CTAB, no wheezes, no rales, no ronchi, normal chest expansion, no tachypnea Gastrointestinal: soft, non-tender, non-distended, normal bowel sounds, no palpable masses Extremities: no cyanosis, no edema Skin: normal turgor Neurological: CN's grossly intact, normal sensation to touch Musculoskeletal: normal tone, normal strength, no muscle wasting Psychiatric: normal affect, normal behavior, A&O x 3 Hosp A/P (1) Hypotension Status: Acute Plan: Echo done, results pending. BP has been between 110-120, per patient dropped when IV fluids decreased in ER. [place] lightheaded when sat up for lung exam, will repeat BP now, will obtain orthostatic BP. Dr. Morillo following. Patient to remain off BP meds. Potential discharge home today. Will need to monitor BP off IV fluids. (2) BASIA (acute kidney injury) Code(s): N17.9 - ACUTE KIDNEY FAILURE, UNSPECIFIED Status: Acute Plan: Improved, GFR >90. Will discontinue fluids and ensure BP maintained. (3) S/P CABG (coronary artery bypass graft) Code(s): Z95.1 - PRESENCE OF AORTOCORONARY BYPASS GRAFT Status: Resolved (4) Diabetes mellitus Code(s): E11.9 - TYPE 2 DIABETES MELLITUS WITHOUT COMPLICATIONS Status: Chronic (5) Obesity Code(s): E66.9 - OBESITY, UNSPECIFIED Status: Acute
[2018-10-17] MEDS ORDERED: Sodium Chloride 0.9% 1,000 ML IV SCH (10:57)
[2018-10-17] MEDS: Atorvastatin Calcium 40 MG TAB PO SCH (20:15)
[2018-10-17] MEDS: Aspirin 81 mg Enteric Coated Tablet PO SCH (20:16)
[2018-10-17] MEDS ORDERED: Fenofibrate 48 MG TAB PO SCH (21:00)
[2018-10-18] MEDS: HYDROcodone/Acetaminophen 5/325 mg Tablet PO PRN ×2 (02:05→11:09)
[2018-10-18 08:25] VITALS: TEMP 97.9
[2018-10-18] MEDS: metFORMIN 500 MG TAB PO SCH (08:31)
[2018-10-18] MEDS: Famotidine 20 MG TAB PO SCH (08:31)
[2018-10-18] MEDS: Polyethylene Glycol 3350 17 GM Packet PO SCH (08:31)
[2018-10-18 12:11] VITALS: BP 118/80
--- NOTE | 2018-10-18 15:04 | DIS ---
DATE OF ADMISSION: 10/16/2018 DATE OF DISCHARGE: 10/18/2018 PRIMARY CARE PHYSICIAN: Dr. Erick Vines. CONSULTING PHYSICIAN: Dr. Bell, Cardiovascular Surgery. DISCHARGE DIAGNOSES: 1. Hypotension, resolved. 2. Coronary artery disease, status post 4 vessel coronary artery bypass grafting on October 02, 2018. 3. Hyperlipidemia. 4. Type 2 diabetes mellitus, requiring insulin. 5. Myocardial infarction in 2014 and 2017. 6. Obesity. 7. Peripheral neuropathy. HOSPITAL COURSE: Mr. Calderon is a very pleasant 48-year-old gentleman, who presented with complaints of chest pain and hypotension. His blood pressure dropped to the 70s, systolic and was given IV hydration in the emergency department, however, once it was discontinued, it once again continued to drop. The patient had been taking his antihypertensives including lisinopril and metoprolol. He was seen by the nurse practitioner at his home and despite low blood pressure, he was continued on lisinopril, though metoprolol was held. The patient continued to drop his blood pressure. The patient was given IV fluids, but it was dropped to 65 mL an hour and his blood pressure continued to maintain in the 110s to 120 systolic. Yesterday, he remained lightheaded when changing positions. He was taken off fluids yesterday afternoon and has continued to maintain his blood pressure. Today, the patient is no longer symptomatic. He has been able to walk the hallways and has not experienced any lightheadedness or dizziness. He is feeling significantly stronger and states he slept well last night. He has been tolerating oral intake. Denies any pain or shortness of breath. The patient is very eager for discharge home. All other review of systems negative. Echocardiogram was repeated on 10/17/2018, and showed an EF of 50% to 55% with grade 2/3 diastolic dysfunction, mildly dilated left atrium, mild mitral regurgitation, aortic valve sclerosis, but opens well and mild tricuspid regurgitation. There was a small pericardial effusion without any evidence of tamponade. The patient was seen and examined on day of discharge. CONDITION: Stable. ACTIVITY: Cardiopulmonary limits. DIET: Heart healthy/diabetic diet. DISCHARGE MEDICATIONS: 1. The patient advised to discontinue metoprolol and lisinopril. 2. Otherwise advised to resume all other home medications. FOLLOWUP: 1. The patient will follow up with the cardiac rehab team as scheduled. 2. We will follow up with Dr. Yost. 3. Advised to follow up with his primary care physician within 1 week. DISPOSITION: The patient medically cleared for discharge home on 10/18/2018. Case discussed with Dr. Giron, who agrees with plan of care as described above. Job ID: [id number]
== END 2018-10-18 14:43 | disposition home or self-care (01) ==
LOC: ERS 09:45 → ERHOLD 12:28 → 2SW 15:55
PROVIDERS: ADMIT Family Medicine; ATTEND Family Medicine
DX: I95.9 Hypotension, unspecified (principal); R07.9 Chest pain, unspecified; I25.10 Atherosclerotic heart disease of native coronary artery without angina pectoris; E11.9 Type 2 diabetes mellitus without complications; I10 Essential (primary) hypertension; N17.9 Acute kidney failure, unspecified; E86.0 Dehydration; E78.5 Hyperlipidemia, unspecified; I25.2 Old myocardial infarction; E66.9 Obesity, unspecified; G62.9 Polyneuropathy, unspecified; I08.1 Rheumatic disorders of both mitral and tricuspid valves; I31.3 Pericardial effusion (noninflammatory); G89.29 Other chronic pain; M54.9 Dorsalgia, unspecified; Z68.39 Body mass index [BMI] 39.0-39.9, adult; Z79.4 Long term (current) use of insulin; Z79.899 Other long term (current) drug therapy; Z87.891 Personal history of nicotine dependence; Z88.8 Allergy status to other drugs, medicaments and biological substances; Z95.1 Presence of aortocoronary bypass graft
CPT/HCPCS: 36415; 36416; 71045; 71275; 80048; 80053; 82550; 83880; 84484; 85007; 85025; 85027; 85610; 85730; 93005; 93306; 96360; 96361; G0378; Q9966

== ENCOUNTER 2018-11-29 09:02 | Outpatient (CLI) | payer OTHER, MEDICARE ==
--- NOTE | 2018-11-29 11:15 | RAD ---
PA AND LATERAL VIEWS CHEST: Date: 11/29/18 HISTORY: Dyspnea. FINDINGS: Comparison made with exam of 10/16/18. There are changes of median sternotomy. The heart size is normal. The aorta is tortuous. The lungs ar e expanded without focal areas of consolidation, pneumothoraces, or pleural effusions. There are post op changes of right rotator cuff repair. IMPRESSION: No radiographic evidence of acute cardiopulmonary process. POS: TPC
== END 2018-11-29 09:03 | disposition home or self-care (01) ==
LOC: RAD 09:02
PROVIDERS: ATTEND Thoracic Surgery (Cardiothoracic Vascular Surgery)
DX: I25.10 Atherosclerotic heart disease of native coronary artery without angina pectoris (principal)
CPT/HCPCS: 71046

== ENCOUNTER 2019-01-02 08:47 | Outpatient (CLI) | payer OTHER, MEDICARE ==
--- NOTE | 2019-01-02 12:55 | CT ---
CT CHEST WITH IV CONTRAST: INDICATIONS: Chest pain. Technologist states the patient complains of anterior chest wall pain near scar from bypa ss surgery. Complains of a palpable lump. COMPARISON: Recent CT chest with contrast performed on 10/16/2018. FINDINGS: The lung neil are clear. There is no infiltrate or effusion. The mediastinum is unremarkable. No adenopathy. Thyroid is unremarkable. Postop sternotomy changes are noted at the sternum. Postop changes are seen in the anterior subcutane ous tissues overlying the sternal incision however there is no evidence of fluid, abscess or hematoma within these tissues. The sternum appears normally aligned in the sagittal projection with no eviden ce of sternal displacement. Images through the upper abdomen are unremarkable. IMPRESSION: Unremarkable CT chest. POS: TPC
== END 2019-01-02 08:48 | disposition home or self-care (01) ==
LOC: CT 08:47
PROVIDERS: ATTEND Internal Medicine Cardiovascular Disease
DX: R07.9 Chest pain, unspecified (principal)
CPT/HCPCS: 71260